=== PATIENT | male | born 2000 | race Caucasian/White ===

== ENCOUNTER 2025-08-09 18:13 | Emergency (ER) | payer OTHER ==
[~2025-08-09] VITALS: Ht 180.3 cm; Wt 70.2 kg
[2025-08-09] MEDS ORDERED: AMOX875T2 PO (19:43)
[2025-08-09] MEDS: TETANUS/DIPHTH/ACEL. PERTUSSIS 0.5 ML SYR IM ONE (19:46)
[2025-08-09] MEDS: AUGMENTIN 875 MG TAB PO ONE (19:46)
[2025-08-09 19:53] VITALS: BP 150/75; TEMP 98.1; O2SAT 99
== END 2025-08-09 20:02 | disposition home or self-care (01) ==
LOC: M ED 18:13
DX: S61.451A Open bite of right hand, initial encounter (principal); W55.01XA Bitten by cat, initial encounter; Y92.410 Unspecified street and highway as the place of occurrence of the external cause; Y93.9 Activity, unspecified; Y99.9 Unspecified external cause status